=== PATIENT | male | born 1945 | race Caucasian/White ===

== ENCOUNTER → 2016-05-22 | Outpatient (CLI) | payer OTHER ==
--- NOTE | 2016-05-22 17:02 | DI ---
Lumbar myelogram requested for chronic low back pain. See separate dictation regarding procedure details. . A series of images the lumbar spine were obtained along with one overhead of the cervical spine to prove contrast had been placed in the cervical canal. Findings: The spinal needle just to left of midline the laminectomy defect at the L3-L4 level. Contra st shows some edema of the nerve roots at multiple lumbar levels. This probably due to foraminal narr owing. See separate CT scan report for focal details. Flexion extension and neutral images of the lumbar spine were obtained in lateral projection. All 3 images show advanced grade 1 anterolisthesis of L5 relative to S1 but no significant spinal rubin nosis at the lumbosacral junction. Due to osteophyte formation, there is prominent indentation of the lumbar neural canal at L2-3 L3-4 and to a lesser extent at L4-L5. No significant progression or abno rmal translation of one vertebral body relative to another is identified with flexion and extension v iews, however. Impression: Myelogram shows multilevel severe degenerative disc disease at all interlumbar levels and grade 1/borderline grade 2 anterolisthesis of L5 relative to S1. There is nerve root edema but no ob vious spinal stenosis observed on this examination. Refer to the CT scan for additional detail
--- NOTE | 2016-05-22 18:49 | DI ---
History: Low back pain and prior lumbar surgery. Patient also has some neck and mid dorsal pain. A CT myelogram of the entire spine was requested. Procedure: Highly collimated axial images were obtained from the skull base to the sacrum with sagitt al and coronal reconstruction from the data set. Previous dictation of the myelogram and the cervical section of the examination has been submitted. This dictation addresses the thoracic and lumbar leve ls. Dose: CT DI 37.4, DLP 2247.4. Findings: [employer] view shows a fusion plate across the pubic symphysis. C7-T1: Large sclerotic facets without foraminal compromise. Cervicothoracic cord as well accommodated . T1-T2 widely patent neural foramina. Posteriorly directed osteophyte right side which may affect T2 n erve root. Review image 33/280. No spinal stenosis. T2-T3: Normal. T3-T4: Anterior osteophytes. Widely patent foramina. Cord well accommodated. T4-T5: Normal except for anterior osteophytes. T5-T6 anterior osteophytes. Cord is well accommodated. Some posterior osteophyte along the yuri-lat eral margin left side image 77/280. Left T6 nerve root may be affected T6-T7: Normal except for anterior osteophytes. T7-T8: Widely patent foramina. Good accommodation of the cord. Anterior osteophyte formation. T8-T9: Foramina patent. Accommodation of the cord good. T9-T10: Normal except for small anterior osteophytes. Foramina patent. Good corticomedullary. T10-T11: Some anterior osteophytes. The foramina are patent. Good cord accommodation. T11-T12: Normal T. 12-L1 large anterior osteophytes. Normal foramina. Normal-appearing conus medullaris. L1-L2 large anterior osteophytes with degenerative disc disease/vacuum phenomena present. The foramin a are widely patent. Facets are moderately hypertrophic. Also observed is posterior disc protrusion w ith osteophyte component more evident on the right than left. This probably affects the right L2 with in the lateral recess. Similarly on the left side the L2 nerve root is probably affected due to the o steophyte disc protrusion. No fozia spinal stenosis identified, however. L2-L3: Degenerative disc disease with vacuum phenomena, large anterior osteophyte formation. Foramina patent on both sides. Top of laminectomy best depicted on sagittal image 41/82. Slight sagittal lalita gation of the lumbar neural canal due to surgical modification. No spinal stenosis present. Remaining facet tissue is hypertrophic. Irregular posterior osteophyte formation along the anterior margin of the lumbar neural canal shows posterior displacement of the L3 nerve roots in the lateral recess. Rev iew image 210/280. L3-L4 shows marked facet hypertrophy, severe bilateral foraminal narrowing affecting both L3 nerve ro ots & degenerative disc disease with vacuum phenomenon. Slight narrowing of the lumbar neural canal w ithout fozia spinal stenosis. Sagittal diameter of the thecal sac is 1.3 cm. Review image 226/280. L4-L5 shows advanced degenerative disc disease with vacuum phenomena and, severe narrowing of the rig ht L. IV nerve root due to marked facet hypertrophic on the right side and only mild narrowing on the left foramen. Left facet is still markedly hypertrophic but extends below the foramen principally. T he thecal sac is compromised on both sides due to the marked facet hypertrophic and is very difficult to visualize immediately below the disc margin. Only a tiny amount of contrast is seen around the L5 and sacral nerve roots. On image 241/280, width of the thecal sac is 7 mm & sagittal diameter is 1.2 cm. The L5 nerve roots aren't not well visualized in the lateral recesses and are clearly affected. Additionally, there appears to be a left-sided far lateral disc herniation evidenced by vacuum phenom adeline, seen on image 236/280. The margins of this disc are not clearly demarcated on the CT scan L5-S1 shows anterolisthesis of L5 relative to S1 due to facet hypertrophy and marked narrowing of the thecal sac with limited visualization of S1 in the lateral recesses. Clear evidence of nerve root en croachment is identified. The facets are markedly hypertrophic and there is crowding of the sacral ne rve roots. Subjacent to the L5-S1 level, the thecal sac is identifiable without encroachment. Both fo ramina at L5 are affected due to anterolisthesis and bony hypertrophic changes. Clear evidence of int raforaminal L5 nerve root encroachment on both sides. Impression: The thoracic spine is generally free of nerve or encroachment or cord abnormalities. Ther e is a right-sided marginal osteophyte which slightly indents the thoracic neural canal at T1-T2 and a similar left-sided marginal osteophyte at T5-T6. L1-L2 shows probable bilateral lateral recess encroachment. See comments above. L2-L3 shows probable bilateral lateral recess encroachment of the L3 nerve roots due to bony osteophy te formation L3-L4 shows severe foraminal narrowing mostly due to facet hypertrophy L4-L5 shows bilateral foraminal stenosis with fozia spinal stenosis affecting L5 and sacral nerve flores ts. Probable far lateral disc herniation left side L4-L5 based upon vacuum phenomena. Additional deta ils mentioned above L5-S1 grade 1 anterolisthesis with severe narrowing of the thecal sac and neural foramina narrowing.. Both L5 and sacral nerve roots are encroached upon. Additional details mentioned above
--- NOTE | 2016-05-23 09:32 | DI ---
History: severe low back pain. Patient has had prior low back surgery. Patient also has occasional ne ck and mid back pain with radiculopathy. Procedure: Written informed consent was obtained. The patient assumed the prone position on the table . A timeout was performed. The skin was marked, shaved, Prepped with sterile solution and long 22-gau ge spinal needle introduced through a laminectomy defect at the L2-3 level. Prompt identification of cerebral spinal fluid was confirmed. The needle was repositioned and the patient received 10 cc of Om nipaque 240 intrathecally. A series of images was obtained in fluoroscopy to the extent possible and the patient was escorted to the CT scanner. There are no complications. Dose: CTD I. 34.7, DLP 824 CT findings: Craniocervical junction: There accommodation medullary junction. Moderate degenerative change with ap parent fusion of C1-C2, secondary to degenerative change. No spinal stenosis. C2-C3 normal. C3-C4: Moderate facet hypertrophic and uncinate hypertrophy. Degenerative disc disease observed. Bord jackeline narrowing of the foramina bilaterally possibly affecting C4 nerve roots. No spinal stenosis bu t relative narrowing of the cervical neural canal due to posterior osteophyte formation. No cord dist ortion. Sagittal diameter of the thecal sac low normal at 1 cm. C4-C5 normal disc height. Marked facet hypertrophy left more so than right. No foraminal compromise v isualize, however. No evidence of spinal stenosis. C5-C6 advanced degenerative disc disease with marginal osteophytes. Only mild facet hypertrophy. Righ t foramen widely patent. Mild narrowing on the left side. No narrowing of the cervical neural canal. Cord well accommodated. C6-C7 advanced degenerative disc disease with anterior osteophyte formation. Moderate foraminal narro wing bilaterally mostly due to uncinate hypertrophic. C7-T1 degenerative disc disease but did a combination of both foramina. Facets are moderately hypertr ophic. T1-T2 widely patent neural foramina. Eccentric right-sided osteophyte without T1 nerve root interfere nce. Possible right T2 nerve root impingement but no deflection of the cord. T2. Impression: Relative narrowing of the cervical neural canal located at C3-C4 with some posterior ras inal osteophytes. No fozia spinal stenosis observed Multilevel degenerative disc disease present principally at C3-C4 as well as C5-6 C6-7 and C7-T1. For aminal patency discussed sequentially in detail above.
== END ==
LOC: RAD 13:07
PROVIDERS: ATTEND Neurological Surgery
DX: M54.16 Radiculopathy, lumbar region (principal); M54.2 Cervicalgia; M54.6 Pain in thoracic spine; M43.17 Spondylolisthesis, lumbosacral region; R32 Unspecified urinary incontinence
CPT/HCPCS: 72126; 72129; 72132; 72240; 72255; 72265

== ENCOUNTER → 2016-07-12 | Outpatient (CLI) | payer OTHER ==
[2016-07-12 09:25] LABS: BASOPHILS # (AUTO) 0.06 10*3/UL; BASOPHILS % (AUTO) 0.9 % (0-1); EOSINOPHILS % (AUTO) 3.1 % (0-8); HEMATOCRIT 55.9 % (42.0-52.0); HEMOGLOBIN 19.3 g/dL (14.0-18.0); IMM GRAN % (AUTO) 1.1 % (0-5); IMM GRAN# (AUTO) 0.07 10*3/UL; LYMPHOCYTES % (AUTO) 20.2 % (10-50); MEAN CORPUSCULAR HEMOGLOBIN 32.2 PG (27-31); MEAN CORPUSCULAR HGB CONC 34.5 g/dL (33-37); MEAN PLATELET VOLUME 9.4 FL (7.4-12.2); MONOCYTES # (AUTO) 0.91 10*3/UL (0.3-0.8); MONOCYTES % (AUTO) 14.1 % (5-15); NEUTROPHILS # (AUTO) 3.91 10*3/UL; NEUTROPHILS % (AUTO) 60.6 % (50-80); RED BLOOD COUNT 5.99 10^6/uL (4.70-6.10); WHITE BLOOD COUNT 6.45 10^3/uL (4.8-10.8)
[2016-07-12 09:31] LABS: LDL CHOLESTEROL,CALCULATED 63.4 mg/dL
[2016-07-12 09:32] LABS: PLATELET MORPHOLOGY COMMENT NORMAL MORPHOLOGY (NORM)
[2016-07-12 09:35] LABS: ASPARTATE AMINO TRANSFERASE 28 IU/L (21-57); BILIRUBIN,TOTAL 0.7 mg/dL (0.3-1.2); BLOOD UREA NITROGEN 17 mg/dL (7-22); BUN/CREATININE RATIO 24.28 (6-20); CALCIUM 9.3 mg/dL (8.7-10.7); CHLORIDE 103 meq/L (98-112); CREATININE 0.7 mg/dL (0.70-1.50); EST GLOMERULAR FILTRATION > 60 (>60 ml/min/1.73m(2)); GLUCOSE 180 mg/dL (78-110); POTASSIUM 4.1 meq/L (3.8-5.2); SODIUM 141 meq/L (135-145); TOTAL PROTEIN 7.6 g/dL (6.1-8.0)
== END ==
LOC: LAB 08:47
PROVIDERS: ATTEND Internal Medicine
DX: E78.5 Hyperlipidemia, unspecified (principal); I10 Essential (primary) hypertension; D75.1 Secondary polycythemia
CPT/HCPCS: 36415; 80053; 80061; 82550; 85025